=== PATIENT | male | born 1980 | race Caucasian/White ===

== ENCOUNTER 2017-12-05 12:07 | Emergency (ER) | payer OTHER ==
[~2017-12-05] VITALS: Ht 182.9 cm; Wt 90.0 kg
[2017-12-05 12:38] VITALS: BP 145/80; PULSE 80; RESP 16; TEMP 98; O2SAT 99
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
[2017-12-05] MEDS ORDERED: METO-309 PO (12:41)
== END 2017-12-05 12:46 | disposition home or self-care (01) ==
LOC: NEDAMB 12:07
DX: S50.01XA Contusion of right elbow, initial encounter (principal); S46.911A Strain of unspecified muscle, fascia and tendon at shoulder and upper arm level, right arm, initial encounter; Y04.2XXA Assault by strike against or bumped into by another person, initial encounter; Y92.240 Courthouse as the place of occurrence of the external cause
CPT/HCPCS: 99281